=== PATIENT | male | born 1965 | race Caucasian/White ===

== ENCOUNTER → 2021-08-04 13:41 | Outpatient (BNVA) | payer SELFPAY | PROVIDERS: PCP Nurse Practitioner; Visit Provider Nurse Practitioner | DX: Z86.16 Personal history of COVID-19 (principal) | CPT/HCPCS: 71046 ==

== ENCOUNTER → 2021-08-06 09:47 | Outpatient (BNVA) | payer SELFPAY | PROVIDERS: PCP Nurse Practitioner; Visit Provider Nurse Practitioner | DX: E11.65 Type 2 diabetes mellitus with hyperglycemia (principal) | CPT/HCPCS: 80053; 83036; 85025 ==

== ENCOUNTER → 2021-12-01 15:39 | Outpatient (BNVA) | payer OTHER, SELFPAY | PROVIDERS: PCP Nurse Practitioner; Visit Provider Nurse Practitioner Family | DX: R51.9 Headache, unspecified (principal); I10 Essential (primary) hypertension | CPT/HCPCS: 80053; 85025 ==

== ENCOUNTER → 2021-12-10 10:51 | Outpatient (BNVA) | payer OTHER, SELFPAY | PROVIDERS: PCP Nurse Practitioner; Visit Provider Nurse Practitioner | DX: E11.65 Type 2 diabetes mellitus with hyperglycemia (principal) | CPT/HCPCS: 81000; 83036; 85025 ==

== ENCOUNTER 2021-12-23 11:41 | Outpatient (CLI) | payer OTHER, SELFPAY ==
--- NOTE | 2021-12-23 12:14 | XR_ITS ---
WS: [id number] KUB, AP view, 12/23/2021 Clinical Data: LLQ PAIN Comparison: None. Findings: No abnormal intraabdominal masses or calcifications are seen. There is no dilatated small bowel or ev idence of obstruction. There is minimal air in the small bowel and colon. There is fecal material throughout the colon. Ther e are clips in the right side of the abdomen at the L2-L3 level and also just superior to the right i liac crest. XR/XR KUB [id number] Impression: Mild ileus.
--- NOTE | 2021-12-23 12:14 | XR_ITS ---
WS: [id number] Lumbar spine, 3 views, 12/23/2021 Clinical Data: RADICULOPATHY,LUMBAR REGION Comparison: None. Findings: No compression fractures or subluxation is seen. No disc space narrowing is seen. The transverse proc esses and SI joints are normal. There are clips possibly from a cholecystectomy adjacent to the L2-L3 disc level. XR/XR lumbar spine 2-3V* [id number] Impression: Negative lumbar spine.
--- NOTE | 2021-12-23 12:14 | XR_ITS ---
WS: [id number] Cervical spine, 3 views, 12/23/2021 Clinical Data: RADICULOPATHY,LUMBAR REGION Comparison: None. Findings: No compression fractures are seen. There are narrowed disc spaces at C5-C6 and C6-C7. There is anterior osteophyte formation at C4, and C5-C6.. There is no prevertebral soft tissue swelling. T he odontoid is unremarkable. The soft tissues of the neck and the lung apices are normal. XR/XR cervical spine 3V* [id number] Impression: 1. Degenerative disc narrowing at C5-C6 and C6-C7. 2. Anterior osteophytes C4-C6.
== END 2021-12-23 11:42 | disposition home or self-care (01) ==
PROVIDERS: PCP Nurse Practitioner; Visit Provider Nurse Practitioner
DX: R10.32 Left lower quadrant pain (principal); M54.16 Radiculopathy, lumbar region; K56.7 Ileus, unspecified; M25.78 Osteophyte, vertebrae
CPT/HCPCS: 72040; 72100; 74018

== ENCOUNTER 2022-01-20 08:20 | Outpatient (CLI) | payer OTHER, SELFPAY ==
--- NOTE | 2022-01-20 08:45 | MR_ITS ---
WS: [id number] MRI HEAD WITHOUT CONTRAST TECHNIQUE: Sagittal T1, T2 axial, T2 axial FLAIR, axial and coronal T1 images, axial susceptibility w eighted imaging, axial diffusion weighted images, and coronal T2 images were obtained. CLINICAL INFORMATION: R51.9 - Headache, unspecified COMPARISON: None. FINDINGS: No evidence of restricted diffusion to suggest acute ischemia. Ventricular system and basal cisterns are patent. A few tiny foci of T2 hyperintensity in the frontal white matter of doubtful clinical sig nificance but can be seen with migraine headaches.. No significant parenchymal volume loss. Normal po sterior fossa. Normal vascular flow voids at the skull base. No extra axial fluid collections. Small LEFT mastoid effusion. RIGHT mastoid air cells well aerated. Mild mucosal thickening in the LEF T ethmoid air cells. Postoperative changes both globes. No hemosiderin on susceptibly weighted images. Normal optic chiasm and pituitary infundibulum. Tempor al lobes and hippocampal formations are normal in appearance. MR/MR head wo con* [id number] IMPRESSION: 1. No evidence of restricted diffusion to suggest acute ischemia. 2. A few tiny foci of T2 hyperintensity in the frontal subcortical white matte r of doubtful clinical significance but can be seen with migraine headaches. 3. Small LEFT mastoid effusion. 4. No hemosiderin on susceptibly weighted images. 5. Normal optic chiasm and pituitary infundibulum. 6. No other significant findings.
== END 2022-01-20 08:21 | disposition home or self-care (01) ==
LOC: RAD 08:24
PROVIDERS: PCP Nurse Practitioner; Visit Provider Nurse Practitioner Family
DX: R51.9 Headache, unspecified (principal)
CPT/HCPCS: 70551

== ENCOUNTER 2022-02-26 16:35 | Emergency (ER) | payer OTHER, SELFPAY ==
--- NOTE | 2022-02-26 16:36 | XRR_ITS ---
PROCEDURE INFORMATION: Exam: XR Chest Exam date and time: 02/26/2022 5:14 PM Age: 56 years old Clinical indication: Pain; Chest pressure; Additional info: Chest pain TECHNIQUE: Imaging protocol: XR of the chest. Views: 1 view. COMPARISON: CR XR chest 2V* [id number] 08/04/2021 1:43 PM FINDINGS: Lungs: Bibasilar atelectasis versus minimal infiltrate. Pleural spaces: Trace bilateral pleural effusions. Heart/Mediastinum: Mild cardiomegaly. Bones/joints: Unremarkable. XR/XR chest 1V portable [id number] IMPRESSION: 1. Trace bilateral pleural effusions. 2. Bibasilar atelectasis versus minimal infiltrate. 3. Mild cardiomegaly.
--- NOTE | 2022-02-26 16:36 | W.ED.CHESTPA ---
Documented by User: Hakan Rebolledo DO 02/28/22 08:14 HPI - Chest Pain General: Chief Complaint: Chest Pain Stated Complaint: CHEST PAIN Time Seen by Provider: 02/26/22 16:36 Source: patient Mode of arrival: ambulatory Limitations: no limitations History of Present Illness: 56-year-old male presents emergency room with complaint of chest pain. He was sitting in a computer and began having chest pain became nauseous vomited x1. Pain did not really radiate anywhere. He had a max pain of 6 out of 10 he states pain is now 2 of 10. He is not having any other symptoms at this time. He has no known history of heart disease he is diabetic. Denies any shortness of breath now any recent cough cold fever sweats or chills. He did have a pleural effusion after COVID but that it seemed to resolve. He is not previously had any cardiac evaluation. He took a single aspirin initially and then was given 3 more by EMS. MD complaint: chest pain Onset (ago): minute(s) Timing of current episode: episodic Prior episodes: No Onset: during rest Pain location: left chest Quality: sharp Relieving factors: nothing Exacerbating factors: nothing Associated symptoms: Reports nausea and vomiting; Deny abdominal pain, diaphoresis, dyspnea, fever(s), leg edema, palpitations, sense of impending doom or syncope Treatment prior to arrival: aspirin Review of Systems Const: Denies: fever(s), chills or diaphoresis ENMT: Denies: throat pain, ear or mastoid pain, nasal discharge or nasal congestion Card: Reports: chest pain; Denies: palpitations, irregular heart rhythm, edema, swelling of feet/ankles or syncope Resp: Denies: dyspnea, productive cough, non-productive cough or wheezing GI: Reports: nausea and vomiting; Denies: abdominal pain : Denies: flank pain, difficulty urinating, dysuria, urinary frequency or urinary urgency Skin/Breast: Denies: rash or pruritus Neuro: Denies: headache(s) PFS ED PFSH: Medical History Allergy-induced asthma Diabetes mellitus with hyperglycemia Environmental and seasonal allergies History of COVID-10 June 2021 Lumbar back pain with radiculopathy affecting lower extremity Obesity (BMI 30-39.9) AZUCENA on CPAP Surgical History History of appendectomy 2020 Family History Other Cancer Diabetes Hyperlipidemia Hypertension Stroke Denies family history of Dementia Chronic kidney disease (CKD) Anesthesia complication Bleeding disorder Lung disease Social History Smoking and tobacco status: former smoker Quit status (tobacco): has quit using tobacco Year quit tobacco: 1985 Former quit date comment: 2ppd x 6 years Second hand smoke exposure: No Smoking risk assessment/counseling performed?: No Alcohol intake: former Year of sobriety/quit date alcohol: 1985 Desire information about alcohol rehabilitation?: No Counseling given: No Desire information about substance/drug rehabilitation?: No Counseling given: No Adopted: No Caregiver/support person: No Lives independently: Yes Household members: family Housing: House Marital status: Single Number of children: 1 service: No Current occupational status: unemployed Current occupational exposures/hazards: No Pets and animals: Yes History of recent travel: No Current gender identity: Male Physical Exam Const: GENERAL APPEARANCE: cooperative and comfortable ORIENTATION/CONSCIOUSNESS: Yes awake, Yes oriented to person, Yes oriented to place and Yes oriented to time HENMT: COMMON NORMALS: normocephalic, atraumatic and hearing grossly normal bilaterally HEAD & SCALP: normocephalic and atraumatic Neck/C-Spine: COMMON NORMALS: no JVD Resp: COMMON NORMALS: normal respiratory effort, No retractions, No use of accessory muscles and clear to auscultation bilaterally AUSCULTATION: clear to auscultation bilaterally Cardio: COMMON NORMALS: no JVD, regular rate, regular rhythm and No murmurs present (Cardio) RATE: regular rate RHYTHM: regular rhythm GI: COMMON NORMALS: Normal to inspection, nondistended, normoactive bowel sounds present, Soft to palpation and No hepatosplenomegaly present AUSCULTATION: Yes normoactive bowel sounds PALPATION: Yes Soft to palpation, No Tenderness to palpation present (GI), No Guarding due to palpation present (GI) and Yes No hepatosplenomegaly present Extremity: COMMON NORMALS: normal to inspection, capillary refill normal, no clubbing, cyanosis or edema, no calf tenderness and no pedal edema Neuro: SENSORIUM/ORIENTATION: Yes oriented to person, Yes oriented to place and Yes oriented to time Skin: COMMON NORMALS: no rashes or lesions noted GENERAL SKIN EXAM: no rashes or lesions noted Course Vital Signs: Vital signs: Vital Signs Temperature 98.1 F 02/26/22 20:12 Pulse Rate 75 02/26/22 20:12 Respiratory Rate 16 02/26/22 20:12 Blood Pressure 151/92 02/26/22 20:12 Pulse Oximetry 98 02/26/22 20:12 MDM - Chest Pain Medical Decision Making Care signed out to Dr. Sanchez at change of shift. See final notes for diagnosis and disposition. Medical Records I reviewed the patient's medical records. Lab Data I reviewed the patient's lab results. : 02/26/22 16:52 02/26/22 16:52 Radiology Impressions Chest X-Ray 02/26/22 16:36 IMPRESSION: 1. Trace bilateral pleural effusions. 2. Bibasilar atelectasis versus minimal infiltrate. 3. Mild cardiomegaly. Gallbladder Ultrasound 02/26/22 17:36 IMPRESSION: 1. Gallbladder appears somewhat prominent, negative for cholelithiasis or gallbladder wall thickening to suggest cholecystitis by ultrasound alone, nuclear medicine HIDA scan could further evaluate this as clinically indicated. 2. Common bile duct somewhat enlarged to 7.8 mm without obstructing lesion, MRCP could further evaluate this. Laboratory Results WBC 8.0 10^3/uL (4.0-10.0) 02/26/22 16:52 RBC 5.74 10^6/uL (4.1-5.3) H 02/26/22 16:52 Hgb 15.7 g/dL (11.7-16.6) 02/26/22 16:52 Hct 46.1 % (42.0-52.0) 02/26/22 16:52 MCV 80.3 fl (80-94) 02/26/22 16:52 MCH 27.4 pg (28.0-34.0) L 02/26/22 16:52 MCHC 34.1 g/dL (30.0-36.0) 02/26/22 16:52 RDW 13.2 % (12.1-15.1) 02/26/22 16:52 Plt Count 326 10^3/cmm (130-400) 02/26/22 16:52 MPV 9.5 fL (7.4-10.4) 02/26/22 16:52 Neut % (Auto) 73.9 % 02/26/22 16:52 Lymph % (Auto) 15.8 % 02/26/22 16:52 [place] % (Auto) 7.9 % 02/26/22 16:52 Eos % (Auto) 1.0 % 02/26/22 16:52 Baso % (Auto) 0.5 % 02/26/22 16:52 Neut # (Auto) 5.92 10^3/uL (1.8-7.7) 02/26/22 16:52 Lymph # (Auto) 1.3 10^3/uL (0.8-4.8) 02/26/22 16:52 [place] # (Auto) 0.6 10^3/uL (0.2-0.9) 02/26/22 16:52 Eos # (Auto) 0.1 10^3/uL (0.0-0.8) 02/26/22 16:52 Baso # (Auto) 0.0 10^3/uL (0.0-0.1) 02/26/22 16:52 Nucleated RBC % (auto) 0 % 02/26/22 16:52 Nucleated RBCs # 0.0 /100WBC 02/26/22 16:52 Sodium 138 mmol/L (136-145) 02/26/22 16:52 Potassium 4.1 mmol/L (3.5-5.1) 02/26/22 16:52 Chloride 98 mmol/L (98-107) 02/26/22 16:52 Carbon Dioxide 25 mmol/L (22-29) 02/26/22 16:52 Anion Gap 19.1 (5-19) H 02/26/22 16:52 BUN 15 mg/dL (6-20) 02/26/22 16:52 Creatinine 0.7 mg/dL (0.7-1.2) 02/26/22 16:52 GFR Calculation 117.1 mL/min (90-130) 02/26/22 16:52 Glucose 155 mg/dL (65-115) H 02/26/22 16:52 Calculated Osmolality 290 mOsm/kg (285-295) 02/26/22 16:52 Calcium 10.4 mg/dL (8.5-10.5) 02/26/22 16:52 Total Bilirubin 1.7 mg/dL (0.15-1.2) H 02/26/22 16:52 AST 185 U/L (0-40) H 02/26/22 16:52 ALT 95 U/L (0-41) H 02/26/22 16:52 Alkaline Phosphatase 146 IU/L (40-130) H 02/26/22 16:52 Troponin T Baseline 7 ng/L (0-15) 02/26/22 16:52 Troponin T 120 Minute 6.00 ng/L (0-15) 02/26/22 18:42 Delta Troponin T Not Reportable 02/26/22 18:42 Total Protein 7.5 g/dL (6.6-8.7) 02/26/22 16:52 Albumin 4.7 g/dL (3.5-5.2) 02/26/22 16:52 Globulin 2.8 g/dL (1.3-4.6) 02/26/22 16:52 Discharge Plan Discharge Patient Disposition: Home Clinical Impression: Chest pain, Biliary colic, Elevated liver enzymes Condition: Stable Prescriptions: No Action Ozempic 0.25 mg or 0.5 mg(2 mg/1.5 mL) pen injector 0.25 mg SUBCUT .weekly Qty: 1.5 2RF Rx Instructions: EVERY 7 DAYS ON MONDAY lisinopril 10 mg tablet 10 mg PO DAILY Qty: 30 2RF zonisamide [Zonegran] 25 mg capsule 25 mg PO Q12H Qty: 60 2RF rizatriptan 10 mg tablet See Rx Instructions PO .COMPLEX Qty: 10 5RF Rx Instructions: take 1 tab at onset of headache; if no relief may repeat 1 tab after at least 2 hrs; max = 3 tabs/24 hr PO Discharge Orders: Discharge ED (Routine); Ordered 02/26/22 Ordered By: Sebastian Sanchez Referrals: Iam Navarrete, KEELER POLYGRAPH OPERATOR-C [Primary Care Provider] - 1-3 days Discharge Diet: Advance as tolerated Discharge Activity: Increase activity as tolerated Patient Instructions: Chest Pain (ED), Biliary Colic (ED) Activity Restrictions/Additional Instructions: Return to the ER for return of your pain, fever greater than 100, shortness of breath, vomiting liquids or medications, yellowing of the skin or eyes, or any other concerning symptoms. See your doctor Monday or Monday. Your liver enzymes should be repeated to ensure they are returning to normal. Coding Level of Care Code ED Electrical Logger for Chg Fwd Exam Comprehensive Documented by User: Sebastian Sanchez DO 02/26/22 20:28 HPI - Chest Pain General: Chief Complaint: Chest Pain Stated Complaint: CHEST PAIN Time Seen by Provider: 02/26/22 16:36 PFSH ED PFSH: Medical History Allergy-induced asthma Diabetes mellitus with hyperglycemia Environmental and seasonal allergies History of COVID-10 June 2021 Lumbar back pain with radiculopathy affecting lower extremity Obesity (BMI 30-39.9) AZUCENA on CPAP Surgical History History of appendectomy 2020 Family History Other Cancer Diabetes Hyperlipidemia Hypertension Stroke Denies family history of Dementia Chronic kidney disease (CKD) Anesthesia complication Bleeding disorder Lung disease Social History Smoking and tobacco status: former smoker Quit status (tobacco): has quit using tobacco Year quit tobacco: 1985 Former quit date comment: 2ppd x 6 years Second hand smoke exposure: No Smoking risk assessment/counseling performed?: No Alcohol intake: former Year of sobriety/quit date alcohol: 1985 Desire information about alcohol rehabilitation?: No Counseling given: No Desire information about substance/drug rehabilitation?: No Counseling given: No Adopted: No Caregiver/support person: No Lives independently: Yes Household members: family Housing: House Marital status: Single Number of children: 1 service: No Current occupational status: unemployed Current occupational exposures/hazards: No Pets and animals: Yes History of recent travel: No Current gender identity: Male Course Vital Signs: Vital signs: Vital Signs Temperature 98.1 F 02/26/22 20:12 Pulse Rate 75 02/26/22 20:12 Respiratory Rate 16 02/26/22 20:12 Blood Pressure 151/92 02/26/22 20:12 Pulse Oximetry 98 02/26/22 20:12 MDM - Chest Pain Medical Decision Making Care signed out to Dr. Sanchez at change of shift. See final notes for diagnosis and disposition. 56-year-old male with chest/epigastric discomfort. He was checked out to me by Dr. Rebolledo at shift change. His CBC is normal. His BMP is normal. Liver enzymes are mildly elevated with elevation in bilirubin to 1.7. Clinically he is not jaundiced or icteric. His symptoms are resolved. He has no pain whatsoever currently and no nausea. Gallbladder ultrasound shows a mildly dilated common bile duct of 7.8 mm, with no evidence of obstruction otherwise. His gallbladder is mildly distended with some sludge. There is no pericholecystic fluid or wall thickening as he is asymptomatic, afebrile, and only has minimal elevation in his bilirubin, MRCP/ERCP does not seem necessary at this point. We will have him follow-up in 2 days time to repeat liver enzymes with his PCP. His troponin stayed normal at 2 hours. His EKG shows a normal sinus rhythm with normal axis, rate of 90, and normal intervals. There are no acute ST changes. His chest x-ray shows residual pleural effusions from COVID, with atelectasis present as well. Lab Data : 02/26/22 16:52 02/26/22 16:52 Radiology Impressions Chest X-Ray 02/26/22 16:36 IMPRESSION: 1. Trace bilateral pleural effusions. 2. Bibasilar atelectasis versus minimal infiltrate. 3. Mild cardiomegaly. Gallbladder Ultrasound 02/26/22 17:36 IMPRESSION: 1. Gallbladder appears somewhat prominent, negative for cholelithiasis or gallbladder wall thickening to suggest cholecystitis by ultrasound alone, nuclear medicine HIDA scan could further evaluate this as clinically indicated. 2. Common bile duct somewhat enlarged to 7.8 mm without obstructing lesion, MRCP could further evaluate this. Laboratory Results WBC 8.0 10^3/uL (4.0-10.0) 02/26/22 16:52 RBC 5.74 10^6/uL (4.1-5.3) H 02/26/22 16:52 Hgb 15.7 g/dL (11.7-16.6) 02/26/22 16:52 Hct 46.1 % (42.0-52.0) 02/26/22 16:52 MCV 80.3 fl (80-94) 02/26/22 16:52 MCH 27.4 pg (28.0-34.0) L 02/26/22 16:52 MCHC 34.1 g/dL (30.0-36.0) 02/26/22 16:52 RDW 13.2 % (12.1-15.1) 02/26/22 16:52 Plt Count 326 10^3/cmm (130-400) 02/26/22 16:52 MPV 9.5 fL (7.4-10.4) 02/26/22 16:52 Neut % (Auto) 73.9 % 02/26/22 16:52 Lymph % (Auto) 15.8 % 02/26/22 16:52 [place] % (Auto) 7.9 % 02/26/22 16:52 Eos % (Auto) 1.0 % 02/26/22 16:52 Baso % (Auto) 0.5 % 02/26/22 16:52 Neut # (Auto) 5.92 10^3/uL (1.8-7.7) 02/26/22 16:52 Lymph # (Auto) 1.3 10^3/uL (0.8-4.8) 02/26/22 16:52 [place] # (Auto) 0.6 10^3/uL (0.2-0.9) 02/26/22 16:52 Eos # (Auto) 0.1 10^3/uL (0.0-0.8) 02/26/22 16:52 Baso # (Auto) 0.0 10^3/uL (0.0-0.1) 02/26/22 16:52 Nucleated RBC % (auto) 0 % 02/26/22 16:52 Nucleated RBCs # 0.0 /100WBC 02/26/22 16:52 Sodium 138 mmol/L (136-145) 02/26/22 16:52 Potassium 4.1 mmol/L (3.5-5.1) 02/26/22 16:52 Chloride 98 mmol/L (98-107) 02/26/22 16:52 Carbon Dioxide 25 mmol/L (22-29) 02/26/22 16:52 Anion Gap 19.1 (5-19) H 02/26/22 16:52 BUN 15 mg/dL (6-20) 02/26/22 16:52 Creatinine 0.7 mg/dL (0.7-1.2) 02/26/22 16:52 GFR Calculation 117.1 mL/min (90-130) 02/26/22 16:52 Glucose 155 mg/dL (65-115) H 02/26/22 16:52 Calculated Osmolality 290 mOsm/kg (285-295) 02/26/22 16:52 Calcium 10.4 mg/dL (8.5-10.5) 02/26/22 16:52 Total Bilirubin 1.7 mg/dL (0.15-1.2) H 02/26/22 16:52 AST 185 U/L (0-40) H 02/26/22 16:52 ALT 95 U/L (0-41) H 02/26/22 16:52 Alkaline Phosphatase 146 IU/L (40-130) H 02/26/22 16:52 Troponin T Baseline 7 ng/L (0-15) 02/26/22 16:52 Troponin T 120 Minute 6.00 ng/L (0-15) 02/26/22 18:42 Delta Troponin T Not Reportable 02/26/22 18:42 Total Protein 7.5 g/dL (6.6-8.7) 02/26/22 16:52 Albumin 4.7 g/dL (3.5-5.2) 02/26/22 16:52 Globulin 2.8 g/dL (1.3-4.6) 02/26/22 16:52 Discharge Plan Discharge Patient Disposition: Home Clinical Impression: Chest pain, Biliary colic, Elevated liver enzymes Condition: Stable Prescriptions: No Action Ozempic 0.25 mg or 0.5 mg(2 mg/1.5 mL) pen injector 0.25 mg SUBCUT .weekly Qty: 1.5 2RF Rx Instructions: EVERY 7 DAYS ON MONDAY lisinopril 10 mg tablet 10 mg PO DAILY Qty: 30 2RF zonisamide [Zonegran] 25 mg capsule 25 mg PO Q12H Qty: 60 2RF rizatriptan 10 mg tablet See Rx Instructions PO .COMPLEX Qty: 10 5RF Rx Instructions: take 1 tab at onset of headache; if no relief may repeat 1 tab after at least 2 hrs; max = 3 tabs/24 hr PO Discharge Orders: Discharge ED (Routine); Ordered 02/26/22 Ordered By: Sebastian Sanchez Referrals: Iam Navarrete, KEELER POLYGRAPH OPERATOR-C [Primary Care Provider] - 1-3 days Discharge Diet: Advance as tolerated Discharge Activity: Increase activity as tolerated Patient Instructions: Chest Pain (ED), Biliary Colic (ED) Activity Restrictions/Additional Instructions: Return to the ER for return of your pain, fever greater than 100, shortness of breath, vomiting liquids or medications, yellowing of the skin or eyes, or any other concerning symptoms. See your doctor Monday or Monday. Your liver enzymes should be repeated to ensure they are returning to normal. Coding Level of Care Code ED Electrical Logger for Rena Fwd Exam Comprehensive
--- NOTE | 2022-02-26 16:37 | ECG_ITS ---
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 Measurements Intervals [place] Rate: 91 P: 35 AK: 163 QRS: 62 QRSD: 105 T: 52 QT: 375 QTc: 462 Interpretive Statements SINUS RHYTHM No previous ECG available for comparison Electronically Signed On 02-26-2022 22:00:20 CDT by Wendie Sheikh M.D. [id number]
[2022-02-26 16:43] VITALS: BP 184/110; PULSE 96; RESP 15; O2SAT 97
[2022-02-26 16:57] LABS: Basophils % 0.5 %; Eosinophils # 0.1 10^3/uL (0.0-0.8); Hematocrit 46.1 % (42.0-52.0); Hemoglobin 15.7 g/dL (11.7-16.6); Lymphocytes # 1.3 10^3/uL (0.8-4.8); Lymphocytes % 15.8 %; Mean Corpuscular HGB Conc 34.1 g/dL (30.0-36.0); Mean Corpuscular Hemoglobin 27.4 pg (28.0-34.0); Mean Corpuscular Volume 80.3 fl (80-94); Mean Platelet Volume 9.5 fL (7.4-10.4); Monocytes # 0.6 10^3/uL (0.2-0.9); Monocytes % 7.9 %; Neutrophils # 5.92 10^3/uL (1.8-7.7); Neutrophils % 73.9 %; Nucleated Red Blood Cells % 0 %; Platelet Count 326 10^3/cmm (130-400); Red Blood Count 5.74 10^6/uL (4.1-5.3); Red Cell Distribution Width 13.2 % (12.1-15.1)
[2022-02-26 17:15] LABS: Alanine Aminotransferase 95 U/L (0-41); Albumin Level 4.7 g/dL (3.5-5.2); Alkaline Phosphatase 146 IU/L (40-130); Anion Gap 19.1 (5-19); Aspartate Amino Transferase 185 U/L (0-40); Blood Urea Nitrogen 15 mg/dL (6-20); Calcium 10.4 mg/dL (8.5-10.5); Carbon Dioxide 25 mmol/L (22-29); Chloride 98 mmol/L (98-107); Globulin 2.8 g/dL (1.3-4.6); Glomerular Filtration Rate 117.1 mL/min (90-130); Glucose 155 mg/dL (65-115); Osmolality Calculated 290 mOsm/kg (285-295); Potassium 4.1 mmol/L (3.5-5.1); Sodium 138 mmol/L (136-145); Total Bilirubin 1.7 mg/dL (0.15-1.2); Total Protein 7.5 g/dL (6.6-8.7)
[2022-02-26 17:16] LABS: Troponin(5th) Baseline 7 ng/L (0-15)
--- NOTE | 2022-02-26 17:36 | USR_ITS ---
PROCEDURE INFORMATION: Exam: US Abdomen, Limited; Right Upper Quadrant Exam date and time: 02/26/2022 5:53 PM Age: 56 years old Clinical indication: Pain and abnormal findings; Abnormal lab test; Abnormal function test of other organs/systems; Abdominal pain; Additional info: Abd pain/elevated lfts/tbili TECHNIQUE: Imaging protocol: US abdomen. Real time ultrasound with image documentation. Limited exam focused on the right upper quadrant. COMPARISON: CR XR KUB [id number] 12/23/2021 12:33 PM FINDINGS: Liver: Normal. No masses. Gallbladder: Gallbladder appears somewhat prominent, negative for cholelithiasis or gallbladder wall thickening to suggest cholecystitis by ultrasound alone, nuclear medicine HIDA scan could further evaluate this as clinically indicated. Biliary ducts: Common bile duct somewhat enlarged to 7.8 mm without obstructing lesion, MRCP could further evaluate this. Pancreas: Visualized pancreas is unremarkable. Right kidney: Normal. No mass. No hydronephrosis. US/US gall bladder [id number] IMPRESSION: 1. Gallbladder appears somewhat prominent, negative for cholelithiasis or gallbladder wall thickening to suggest cholecystitis by ultrasound alone, nuclear medicine HIDA scan could further evaluate this as clinically indicated. 2. Common bile duct somewhat enlarged to 7.8 mm without obstructing lesion, MRCP could further evaluate this.
--- NOTE | 2022-02-26 18:37 | ECG_ITS ---
[facility] Test Date: 2022-02-26 Pat Name: Chauncey Guajardo Department: Room: Gender: Male Card Feeder: : 1965 Requested By: Hakan Gabriel Order Number: [id number] Ashlyn MD: Wendie Sheikh M.D. Measurements Intervals [place] Rate: 92 P: 12 NV: 163 QRS: 24 QRSD: 125 T: 42 QT: 372 QTc: 462 Interpretive Statements SINUS RHYTHM MODERATE INTRAVENTRICULAR CONDUCTION DELAY [110+ ms QRS DURATION] Compared to ECG 02/26/2022 16:46:27 Intraventricular conduction delay now present Electronically Signed On 02-26-2022 22:04:16 CDT by Wendie Sheikh M.D. [id number]
[2022-02-26 19:33] VITALS: BP 160/101; PULSE 95; RESP 16; TEMP 36.7; O2SAT 97
[2022-02-26] MEDS: lisinopril 10 mg Tablet PO (19:39)
[2022-02-26] MEDS: labetalol 5 mg/mL SDV 20mL 10 MG IVP (19:40)
[2022-02-26 19:52] VITALS: BP 151/92; PULSE 75; RESP 16; TEMP 36.7; O2SAT 98
[2022-02-26 20:12] VITALS: BP 151/92; PULSE 75; RESP 16; TEMP 36.7; O2SAT 98
== END 2022-02-26 20:16 | disposition home or self-care (01) ==
PROVIDERS: Family Medicine; Emergency Provider Emergency Medicine; PCP Nurse Practitioner
DX: R07.9 Chest pain, unspecified (principal); K83.9 Disease of biliary tract, unspecified; R74.8 Abnormal levels of other serum enzymes; J90 Pleural effusion, not elsewhere classified; J98.11 Atelectasis; E11.9 Type 2 diabetes mellitus without complications; Z87.891 Personal history of nicotine dependence; Z86.16 Personal history of COVID-19
CPT/HCPCS: 71045; 76705; 80053; 84484; 85025; 93005; 96374; 99285; J3490

== ENCOUNTER → 2022-03-11 11:40 | Outpatient (BNVA) | payer OTHER, SELFPAY | PROVIDERS: PCP Nurse Practitioner; Visit Provider Nurse Practitioner Family | DX: E11.65 Type 2 diabetes mellitus with hyperglycemia (principal) | CPT/HCPCS: 83036 ==

== ENCOUNTER → 2022-07-14 08:41 | Outpatient (BNVA) | payer OTHER, SELFPAY | PROVIDERS: PCP Nurse Practitioner; Visit Provider Nurse Practitioner | DX: E11.65 Type 2 diabetes mellitus with hyperglycemia (principal); I10 Essential (primary) hypertension | CPT/HCPCS: 80053; 80061; 81000; 83036 ==

== ENCOUNTER → 2022-07-21 10:51 | Outpatient (BNVA) | payer OTHER, SELFPAY | PROVIDERS: PCP Nurse Practitioner; Visit Provider Registered Nurse Neonatal Intensive Care | DX: G43.119 Migraine with aura, intractable, without status migrainosus (principal); R52 Pain, unspecified | CPT/HCPCS: 87426 ==

== ENCOUNTER 2022-08-22 07:46 | Outpatient (CLI) | payer OTHER, SELFPAY ==
--- NOTE | 2022-08-22 08:00 | NM_ITS ---
WS: [id number] NUCLEAR MEDICINE HIDA SCAN CLINICAL INFORMATION: K80.50 - Calculus of bile duct without cholangitis or cho... TECHNIQUE: Following intravenous administration of 8.3 mCi of technetium 99m mebrofenin, images of th e abdomen were obtained over the course of 60 minutes. Next, gallbladder ejection fraction was determ ined by obtaining preprandial and one-hour postprandial images of the gallbladder following oral tristin stion of Ensure. COMPARISON: Ultrasound February 26, 2022 FINDINGS: Mild hepatomegaly. Normal hepatic uptake at 5 minutes. Normal hepatic excretion. Gallbladder is visua lized at 15 minutes. No evidence of acute cholecystitis. Normal common bile duct and small bowel acti vity. Gallbladder ejection fraction 33% compatible with biliary dyskinesia and gallbladder dysfunction. John stout suspicious for chronic cholecystitis. NM/NM hepatobiliary w phar* [id number] IMPRESSION: Decreased gallbladder ejection fraction 33% compatible with gallbladder dysfunc tion. Findings suspicious for chronic cholecystitis.
== END 2022-08-22 07:47 | disposition home or self-care (01) ==
LOC: RAD 07:46
PROVIDERS: PCP Nurse Practitioner; Visit Provider Nurse Practitioner
DX: K80.50 Calculus of bile duct without cholangitis or cholecystitis without obstruction (principal)
CPT/HCPCS: 78227; A9537

== ENCOUNTER → 2022-11-07 09:59 | Outpatient (BNVA) | payer MEDICAID, SELFPAY | PROVIDERS: PCP Nurse Practitioner; Referring Provider Nurse Practitioner Family; Visit Provider Specialist | DX: R20.0 Anesthesia of skin (principal); R20.2 Paresthesia of skin | CPT/HCPCS: 36415; 83036 ==

== ENCOUNTER 2023-03-09 22:38 | Emergency (ER) | payer MEDICAID, SELFPAY ==
[2023-03-09 22:39] VITALS: BP 159/99; PULSE 111; RESP 20; TEMP 37.2; O2SAT 97; BMI 49.1
--- NOTE | 2023-03-09 22:40 | ECG_ITS ---
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 Measurements Intervals [place] Rate: 108 P: 44 MA: 175 QRS: 34 QRSD: 105 T: 40 QT: 356 QTc: 478 Interpretive Statements SINUS TACHYCARDIA ABNORMAL RHYTHM ECG Compared to ECG 02/26/2022 18:58:11 Sinus rhythm no longer present Intraventricular conduction delay no longer present Electronically Signed On 03-11-2023 6:02:53 CDT by Loli Fuentes M.D. [id number]
--- NOTE | 2023-03-09 22:52 | W.ED.ARRPALP ---
HPI - Arrhythmia/Palpitations General: Chief Complaint: Arrhythmia/Palpitations Stated Complaint: HIGH HEARTRATE Time Seen by Provider: 03/09/23 22:40 Source: patient and EMS Mode of arrival: EMS Limitations: no limitations History of Present Illness: 57-year-old male states he started having palpitations roughly an hour ago. He states he called EMS as he could feel his heart racing. He denies ever have any chest pain denies any shortness of breath EMS arrived his heart rate was 205 SVT they gave him 6 mg adenosine he has since converted he states he feels much improved his heart rate now is 100. He has no history of SVT. Denies any cough or fever. He does take propanolol and lisinopril he states he has not taken them over the last 2 to 3 days. Associated symptoms: Deny anxiety, nausea or vomiting Review of Systems Const: Denies: fever(s), chills or body aches Card: Reports: palpitations; Denies: chest pain Resp: Denies: dyspnea GI: Denies: nausea or vomiting Skin/Breast: Denies: rash Neuro: Denies: headache(s) Psych: Denies: anxiety COUNTS INCLUDE 234 BEDS AT THE [facility] ED PFSH: Medical History Allergy-induced asthma Diabetes mellitus with hyperglycemia Environmental and seasonal allergies History of COVID-10 June 2021 Lumbar back pain with radiculopathy affecting lower extremity Migraine Obesity (BMI 30-39.9) AZUCENA on CPAP Surgical History H/O esophagogastroduodenoscopy History of appendectomy 2020 Hx of tonsillectomy Status post colonoscopy Family History Other Cancer Diabetes Hyperlipidemia Hypertension Stroke Denies family history of Dementia Chronic kidney disease (CKD) Anesthesia complication Bleeding disorder Lung disease Social History Smoking and tobacco status: former smoker Quit status (tobacco): has quit using tobacco Year quit tobacco: 1985 Former quit date comment: 2ppd x 6 years Second hand smoke exposure: No Smoking risk assessment/counseling performed?: No Alcohol intake: former Year of sobriety/quit date alcohol: 1985 Desire information about alcohol rehabilitation?: No Counseling given: No Substance/Drug Use: former Date of last use: 1985 Desire information about substance/drug rehabilitation?: No Counseling given: No Adopted: No Caregiver/support person: No Lives independently: Yes Household members: family Housing: House Marital status: Single Number of children: 1 service: No Current occupational status: unemployed Current occupational exposures/hazards: No Pets and animals: Yes Do you think of yourself as: Straight/Heterosexual Current gender identity: Male Physical Exam Const: COMMON NORMALS: no acute distress, patient oriented x3 and healthy appearing HENMT: COMMON NORMALS: normocephalic and atraumatic HEAD & SCALP: normocephalic and atraumatic Neck/C-Spine: COMMON NORMALS: full ROM and supple Chest: COMMONS NORMALS: normal inspection of the chest and normal palpation of entire chest wall Resp: COMMON NORMALS: normal respiratory effort, No retractions, No use of accessory muscles and clear to auscultation bilaterally AUSCULTATION: clear to auscultation bilaterally Cardio: COMMON NORMALS: regular rate, regular rhythm and No murmurs present (Cardio) RATE: regular rate RHYTHM: regular rhythm GI: COMMON NORMALS: Normal to inspection, nondistended, normoactive bowel sounds present, Soft to palpation, non-tender and no masses PALPATION: Yes Soft to palpation Extremity: COMMON NORMALS: normal to inspection and full ROM Neuro: COMMON NORMALS: patient oriented x3, moves all extremities and no focal motor deficits Psych: COMMON NORMALS: mental status grossly normal, Normal thought process present and cooperative THOUGHT PROCESS: Normal thought process present Skin: COMMON NORMALS: no rashes or lesions noted and no wounds GENERAL SKIN EXAM: no rashes or lesions noted Course Vital Signs: Vital signs: Vital Signs Temperature 99.0 F 03/09/23 22:39 Pulse Rate 96 03/09/23 23:15 Respiratory Rate 16 03/09/23 23:15 Blood Pressure 161/103 03/09/23 23:15 Pulse Oximetry 99 03/09/23 23:15 MDM - Arrhythmia/Palpitations Medical Decision Making Patient presents here with SVT he is back in sinus rhythm here he feels improved he does not take propranolol anymore we will start him on metoprolol we will refill his lisinopril and statin as well. We will get him follow-up with cardiology he is to return if worsening he is asymptomatic here no chest pain no shortness of breath. Differential Diagnosis Likely supraventricular tachycardia; Unlikely anxiety, sinus tachycardia, artial fibrillation or ventricular tachycardia Medical Records I reviewed the patient's medical records. Lab Data I reviewed the patient's lab results. EKG Data EKG 1: I personally reviewed and interpreted this EKG as follows: EKG interpretation date: 03/09/23 EKG interpretation time: 22:44 Interpretation: sinus tach hr [address] or t wave abnormalities qrs 105 qt 419 Discharge Plan Discharge Patient Disposition: Home Clinical Impression: Supraventricular tachycardia Condition: Stable Prescriptions: New metoprolol succinate 25 mg tablet extended release 24 hr 25 mg PO DAILY Qty: 30 0RF Continued lisinopril 20 mg tablet 20 mg PO DAILY Qty: 30 0RF Crestor 10 mg tablet 10 mg PO DAILY Qty: 30 0RF Discontinued propranolol 20 mg tablet 20 mg PO BID Qty: 60 2RF No Action Ozempic 0.25 mg or 0.5 mg(2 mg/1.5 mL) pen injector 0.5 mg SUBCUT .weekly Qty: 1.5 2RF Rx Instructions: EVERY 7 DAYS ON MONDAY Discharge Orders: Discharge ED (Routine); Ordered 03/09/23 Ordered By: Britton David Referrals: Iam Navarrete, SHUTDOWN COORDINATOR-C [Nurse Practitioner] - Loli Fuentes MD [Physician] - 1-3 days Discharge Diet: Advance as tolerated Discharge Activity: Resume usual activity Patient Instructions: Supraventricular Tachycardia (ED) Coding Level of Care Code ED Peripheral Equipment Operator for Rena Arias
[2023-03-09] MEDS: labetalol 5 mg/mL SDV 20mL 10 MG IVP (23:05)
[2023-03-09 23:08] VITALS: BP 156/99; PULSE 116; RESP 16; O2SAT 97
[2023-03-09 23:15] VITALS: BP 161/103; PULSE 96; RESP 16; O2SAT 99
[2023-03-10 00:02] VITALS: BP 161/103; PULSE 96; RESP 16; TEMP 37.2; O2SAT 99
--- NOTE | 2023-03-10 08:43 | DCPLANNER ---
Addendum entered by Lynn Angulo 04/25/23 11:54: Patient had a follow up appointment scheduled with heart care - patient did not attend appointment. Addendum entered by Lynn Angulo 03/20/23 10:40: Patient has a follow up appointment scheduled for Monday, April 17, 2023 at 10:[address] Fuentes at [facility]. Original Note: mechanical manager had message to schedule a follow up appointment for patient with cardiology. mechanical manager sent patients information to the front office staff at [facility]. Patients information will be printed and reviewed. Clinic will call patient with appointment information.
== END 2023-03-10 00:03 | disposition home or self-care (01) ==
PROVIDERS: Emergency Provider Emergency Medicine; PCP Family Medicine
DX: I47.1 Supraventricular tachycardia (principal); Z87.891 Personal history of nicotine dependence; E11.9 Type 2 diabetes mellitus without complications
CPT/HCPCS: 93005; 96374; 99284; J3490

== ENCOUNTER → 2023-05-05 09:34 | Outpatient (BNVA) | payer MEDICAID, SELFPAY | PROVIDERS: Visit Provider Nurse Practitioner | DX: E11.65 Type 2 diabetes mellitus with hyperglycemia (principal) | CPT/HCPCS: 80053; 80061; 83036 ==

== ENCOUNTER → 2023-05-22 07:27 | Outpatient (BNVA) | payer MEDICAID, SELFPAY | PROVIDERS: Visit Provider Family Medicine | DX: I10 Essential (primary) hypertension (principal); E78.2 Mixed hyperlipidemia; E11.69 Type 2 diabetes mellitus with other specified complication; E66.9 Obesity, unspecified; R00.0 Tachycardia, unspecified; G47.30 Sleep apnea, unspecified; G47.33 Obstructive sleep apnea (adult) (pediatric); Z99.89 Dependence on other enabling machines and devices; M54.16 Radiculopathy, lumbar region; G43.711 Chronic migraine without aura, intractable, with status migrainosus; E66.01 Morbid (severe) obesity due to excess calories; G43.119 Migraine with aura, intractable, without status migrainosus; K82.8 Other specified diseases of gallbladder | CPT/HCPCS: 80053; 80061; 86003; 86008 ==

== ENCOUNTER → 2023-12-06 13:37 | Outpatient (BNVA) | payer MEDICAID, SELFPAY | PROVIDERS: PCP Family Medicine | DX: R00.0 Tachycardia, unspecified (principal); E11.69 Type 2 diabetes mellitus with other specified complication; E66.9 Obesity, unspecified; E11.65 Type 2 diabetes mellitus with hyperglycemia | CPT/HCPCS: 80053; 80061; 83036; 85025 ==

== ENCOUNTER 2024-04-03 14:30 | Outpatient (CLI) | payer MEDICAID, SELFPAY | END 2024-04-03 14:31 | disposition home or self-care (01) | LOC: SLEEP 04-04 12:09 | PROVIDERS: PCP Family Medicine; Visit Provider Family Medicine | DX: G47.33 Obstructive sleep apnea (adult) (pediatric) (principal) | CPT/HCPCS: G0399 ==

== ENCOUNTER → 2024-06-28 13:24 | Outpatient (BNVA) | payer MEDICARE, SELFPAY | PROVIDERS: PCP Family Medicine; Referring Provider Family Medicine; Visit Provider Specialist | DX: G43.119 Migraine with aura, intractable, without status migrainosus (principal); G43.711 Chronic migraine without aura, intractable, with status migrainosus; M79.7 Fibromyalgia; E66.01 Morbid (severe) obesity due to excess calories; Z68.41 Body mass index [BMI] 40.0-44.9, adult | CPT/HCPCS: 99214; 99215 ==

== ENCOUNTER → 2024-07-05 13:38 | Outpatient (BNVA) | payer MEDICARE, BC, SELFPAY | PROVIDERS: PCP Family Medicine; Visit Provider Family Medicine | DX: E11.69 Type 2 diabetes mellitus with other specified complication (principal); E66.9 Obesity, unspecified | CPT/HCPCS: 80053; 80061; 83036; 85025 ==

== ENCOUNTER → 2024-12-06 12:09 | Outpatient (BNVA) | payer OTHER, SELFPAY | PROVIDERS: PCP Family Medicine; Visit Provider Nurse Practitioner Family | DX: R51.9 Headache, unspecified (principal) | CPT/HCPCS: 87426 ==

== ENCOUNTER → 2024-12-12 08:27 | Outpatient (BNVA) | payer OTHER, SELFPAY | PROVIDERS: PCP Family Medicine; Visit Provider Family Medicine | DX: E11.69 Type 2 diabetes mellitus with other specified complication (principal); E66.9 Obesity, unspecified | CPT/HCPCS: 80048; 83036 ==

== ENCOUNTER → 2024-12-20 08:50 | Outpatient (BNVA) | payer OTHER, SELFPAY | PROVIDERS: PCP Family Medicine; Visit Provider Family Medicine | DX: N17.9 Acute kidney failure, unspecified (principal) | CPT/HCPCS: 80048 ==

== ENCOUNTER → 2024-12-26 08:42 | Outpatient (BNVA) | payer OTHER, SELFPAY | PROVIDERS: PCP Family Medicine; Visit Provider Family Medicine | DX: E11.69 Type 2 diabetes mellitus with other specified complication (principal); E66.9 Obesity, unspecified | CPT/HCPCS: 80048 ==

== ENCOUNTER → 2025-01-31 15:27 | Outpatient (BNVA) | payer OTHER, SELFPAY | PROVIDERS: PCP Family Medicine; Visit Provider Family Medicine | DX: N17.9 Acute kidney failure, unspecified (principal) | CPT/HCPCS: 80053 ==

== ENCOUNTER → 2025-04-28 15:05 | Outpatient (BNVA) | payer OTHER, SELFPAY | PROVIDERS: PCP Family Medicine; Visit Provider Family Medicine | DX: E11.69 Type 2 diabetes mellitus with other specified complication (principal); E66.9 Obesity, unspecified | CPT/HCPCS: 80053; 83036 ==

== ENCOUNTER → 2025-08-11 13:39 | Outpatient (BNVA) | payer OTHER, SELFPAY | PROVIDERS: PCP Family Medicine; Visit Provider Family Medicine | DX: Z13.6 Encounter for screening for cardiovascular disorders (principal); Z11.59 Encounter for screening for other viral diseases; Z12.5 Encounter for screening for malignant neoplasm of prostate | CPT/HCPCS: 80053; 80074; 83036; 84153 ==